=== PATIENT | male | born 1970 | race Caucasian/White ===

== ENCOUNTER → 2018-04-01 09:40 | Outpatient (CLI) | payer OTHER, SELFPAY ==
[2018-04-01 12:51] LABS: Anion Gap 8 (5-15); BUN 15 mg/dL (7-18); BUN/Creat Ratio 15.2 RATIO (10-20); Calcium,Total 9.1 mg/dL (8.5-10.1); Chloride 110 mmol/L (98-107); Creatinine, Serum 0.98 mg/dL (0.70-1.30); EST Glomerular Filtration Rate 86 mL/min (>60); Est Glom Filt Rate - Afr Amer 104 mL/min (>60); Glucose 99 mg/dL (74-106); Potassium 3.6 mmol/L (3.5-5.1); Sodium Level 146 mmol/L (136-145); Thyroid Stim Hormone (TSH) 1.08 uIU/mL (0.358-3.74)
== END ==
PROVIDERS: Family Provider Family Medicine; PCP Family Medicine; Visit Provider Psychiatry & Neurology Psychiatry
DX: F31.9 Bipolar disorder, unspecified (principal)
CPT/HCPCS: 36415; 80048; 80178; 84443

== ENCOUNTER → 2018-09-26 09:50 | Outpatient (CLI) | payer OTHER, SELFPAY ==
[2018-09-26 12:27] LABS: Anion Gap 7 (5-15); BUN 17 mg/dL (7-18); BUN/Creat Ratio 18.1 RATIO (10-20); Calcium,Total 8.9 mg/dL (8.5-10.1); Chloride 112 mmol/L (98-107); Creatinine, Serum 0.94 mg/dL (0.70-1.30); EST Glomerular Filtration Rate 91 mL/min (>60); Est Glom Filt Rate - Afr Amer 110 mL/min (>60); Glucose 97 mg/dL (74-106); Potassium 3.6 mmol/L (3.5-5.1); Sodium Level 145 mmol/L (136-145)
== END ==
PROVIDERS: Family Provider Family Medicine; PCP Family Medicine; Referring Provider Psychiatry & Neurology Psychiatry; Visit Provider Psychiatry & Neurology Psychiatry
DX: F31.9 Bipolar disorder, unspecified (principal)
CPT/HCPCS: 36415; 80048; 80178; 84443

== ENCOUNTER → 2019-03-28 11:25 | Outpatient (CLI) | payer OTHER, SELFPAY ==
[2019-03-28 12:42] LABS: Anion Gap 10 (5-15); BUN 15 mg/dL (7-18); BUN/Creat Ratio 13.2 RATIO (10-20); Calcium,Total 9.3 mg/dL (8.5-10.1); Chloride 109 mmol/L (98-107); Creatinine, Serum 1.14 mg/dL (0.70-1.30); EST Glomerular Filtration Rate 73 mL/min (>60); Est Glom Filt Rate - Afr Amer 88 mL/min (>60); Glucose 79 mg/dL (74-106); Potassium 3.6 mmol/L (3.5-5.1); Sodium Level 144 mmol/L (136-145); Thyroid Stim Hormone (TSH) 1.84 uIU/mL (0.358-3.74)
== END ==
PROVIDERS: Family Provider Family Medicine; PCP Family Medicine; Referring Provider Psychiatry & Neurology Psychiatry; Visit Provider Psychiatry & Neurology Psychiatry
DX: Z51.81 Encounter for therapeutic drug level monitoring (principal); Z79.899 Other long term (current) drug therapy
CPT/HCPCS: 36415; 80048; 80178; 84443

== ENCOUNTER → 2019-09-11 11:19 | Outpatient (CLI) | payer OTHER, SELFPAY ==
[2019-09-11 13:21] LABS: Anion Gap 2 (5-15); BUN 12 mg/dL (7-18); BUN/Creat Ratio 10.7 RATIO (10-20); Calcium,Total 9.3 mg/dL (8.5-10.1); Chloride 108 mmol/L (98-107); Creatinine, Serum 1.12 mg/dL (0.70-1.30); EST Glomerular Filtration Rate 74 mL/min (>60); Est Glom Filt Rate - Afr Amer 89 mL/min (>60); Glucose 82 mg/dL (74-106); Potassium 3.6 mmol/L (3.5-5.1); Sodium Level 139 mmol/L (136-145); Thyroid Stim Hormone (TSH) 1.64 uIU/mL (0.358-3.74)
== END ==
PROVIDERS: Family Provider Family Medicine; PCP Family Medicine; Referring Provider Psychiatry & Neurology Psychiatry; Visit Provider Psychiatry & Neurology Psychiatry
DX: Z79.899 Other long term (current) drug therapy (principal)
CPT/HCPCS: 36415; 80048; 80178; 84443

== ENCOUNTER → 2019-09-30 11:30 | Outpatient (CLI) | payer OTHER, SELFPAY ==
[2019-09-30 15:45] LABS: Cholesterol 187 mg/dL (200); High Density Lipoprotein 46 mg/dL; PSA,Total - Annual Screen 0.67 ng/mL (0.00-4.00); Triglycerides 307 mg/dL; Very Low Density Lipoprotein 61 mg/dL (5-40)
== END ==
LOC: BFHLAB 11:31
PROVIDERS: PCP Family Medicine; Visit Provider Family Medicine
DX: Z13.220 Encounter for screening for lipoid disorders (principal); Z12.5 Encounter for screening for malignant neoplasm of prostate
CPT/HCPCS: 36415; 80061; 84153; G0103

== ENCOUNTER → 2020-03-24 10:53 | Outpatient (CLI) | payer OTHER, SELFPAY ==
[2020-03-24 13:01] LABS: Anion Gap 2 (5-15); BUN 14 mg/dL (7-18); BUN/Creat Ratio 12.3 RATIO (10-20); Calcium,Total 9.3 mg/dL (8.5-10.1); Chloride 111 mmol/L (98-107); Creatinine, Serum 1.14 mg/dL (0.70-1.30); EST Glomerular Filtration Rate 72 mL/min (>60); Est Glom Filt Rate - Afr Amer 87 mL/min (>60); Glucose 90 mg/dL (74-106); Potassium 3.7 mmol/L (3.5-5.1); Sodium Level 141 mmol/L (136-145); Thyroid Stim Hormone (TSH) 1.03 uIU/mL (0.358-3.74)
== END ==
PROVIDERS: PCP Family Medicine; Referring Provider Psychiatry & Neurology Psychiatry; Visit Provider Psychiatry & Neurology Psychiatry
DX: Z79.899 Other long term (current) drug therapy (principal)
CPT/HCPCS: 36415; 80048; 80178; 84443

== ENCOUNTER 2020-04-22 06:51 | Day surgery (SDC) | payer OTHER, SELFPAY ==
[2020-04-22] VITALS (7 sets, daily range): BP systolic 128–165; BP diastolic 87–102; PULSE 45–64; RESP 15–16; TEMP 36.2–37.1; O2SAT 93–100; BMI 24.8
--- NOTE | 2020-04-22 07:20 | HP.PCM_ITS ---
History of Present Illness Date of Admission: 04/22/20 The patient is a 50 year old M who presents for screening colonoscopy. Patient has never had colonoscopy in the past. He has no blood in stool or abdominal pain. He denies a family history of colon cancer. He is not on any blood thinners. Past Medical/Surgical History - Planned Operation Planned Operative Procedure/s: cscope open access Date of Operative Procedure: 04/22/20 Permit Signed: No S.O.S: No Is This Patient Having a Total Joint: No - Previous Hospitalizations/Surgeries HX Hospitalizations: No HX of Surgeries: 2018 radiofreq ablation foot Any Problems With Anesthesia: No You/Your Family Experience Fever (Hyperthermia) With Anes: No Cholinesterase deficiency: No - Cardiovascular Hx Chest Pain within Last 2 months: No Hx of Irregular Heartbeat and/or Afib: No Hx Heart Attack: No Hx Congestive Heart Failure: No Hx Rheumatic Fever: No Hx Hypertension: No Hx Internal Defibrillator: No Hx Pacemaker: No Hx Cardiac Catheterization: No Hx Cardiac Surgery/Stents/Etc.: No Hx Stress Test: No HX Edema: No Hx Pain in Legs when Walking/Leg Cramps: No - Respiratory Chronic Cough: No HX of Shortness of Breath: No Hoarseness: No Hx Chronic Obstructive Pulmonary Disease (COPD): No Hx Asthma: No Hx Emphysema: No Hx Sleep Apnea: No Hx Oxygen Use at Home: No Hx Respiratory Tract Infection/Cold (presently): No Do You Snore Loudly (louder than talking or can be heard): No Do You Often Feel Tired/ Fatigued/ Sleepy Dring Daytime?: No Has Anyone Observed You Stop Breathing During Sleep?: No Result (for STOP score): Negative Hx Smoking: No Smoking Status: Never smoker - Gastrointestinal Hx Gastroesophageal Reflux: No Hx Gastrointestinal Disorders: No Hx Gastrointestinal Bleed: No Hx Ulcer: No Hx Hiatal Hernia: No Difficulty Chewing/Swallowing: No Recent Onset of Swallowing Problems: No Special diet followed at home: No Hx Unplanned Weight Loss of 20#: No HX Unplanned Weight Gain of 20#: No - Neurological Hx Seizures: Yes - as child/epilepsy/resolved HX Syncope/Blackout Spells/Unconsciousness: No Hx CVA/Stroke: No Hx Transient Ischemic Attacks (TIA): No Hx Multiple Sclerosis: No Hx Parkinson's Disease: No Hx Head/Neck Injury: No Hx Headaches: No Hx Back Injury/Pain: No Recent Onset of Speech Difficulty: No Restless Legs: No Does patient have nerve stimulator: No Patient instructed to have device shut off: No Rep notified?: No - Blood Disorder Hx Leukemia: No Bleeding Tendencies: No Hx Deep Vein Thrombosis: No Hx High Cholesterol: No Blood Transmitted Disease: No Hx Hepatitis: No Hx Cirrhosis: No Hx Anemia: No Hx Blood Disorders: No - Genitourinary Hx Renal Disease: No - Musculoskeletal Hx Arthritis: Yes Hx Rheumatoid Arthritis: No Hx Gout: No Recent Onset of an Orthopedic Problem: No - Endocrine Hx Diabetes: No Thyroid Disease: No Hx Steroid Therapy: No - Psycho/Social Hx Substance Use: No Hx Alcohol Use: Yes - social Hx Anxiety: No Hx Depression: Yes Mental Illness: Yes - bipolar on med - Miscellaneous Hx Cancer: No Recent Exposure to Contagious Disease: No Active MRSA: No Hx of C-Diff: No Any Loose Teeth: No Allergies No Known Allergies Allergy (Verified 04/22/20 07:09) - Discharge Is Pt Admitted From a Longterm, or a Long Term: No After D/C, Where Do you Plan to Go: Return Home - Physical Exam General: Alert, Oriented x3 Lungs: Normal air movement Cardiovascular: Regular rate, Regular Rhythm Abdomen: Bowel Sounds Present, Soft, Non Tender, Non-Distended Assessment/Plan 50-year-old male for screening colonoscopy I explained endoscopy in detail to the patient. I explained the risks including but not limited to stroke or heart attack with anesthesia, perforation of the GI tract, bleeding, infection. I explained that any of these could necessitate further emergency surgery. The patient understands and all questions were answered sufficiently. The patient wishes to proceed with procedure. We discussed the current risks associated with COVID-19. While it is understood that there is a community spread of COVID-19, the risk of velia COVID-19 while at [facility] ([facility]) is very low; however, the risk cannot be completely mitigated because of the community spread of the disease. We discussed in detail the risk of exposure to and/or potential harm posed by the COVID-19 virus with having a surgery/procedure at this time versus the risk of delaying the surgery/procedure. It is not possible to know either the risk of delaying the surgery or procedure or chance of getting an infection with perfect accuracy, but a joint decision was made to proceed at this time with the scheduled surgery/procedure as indicated on the consent form. Patient was notified that we will need to comply with any screening or testing [facility] wishes to perform or that surgery may be delayed for any positive results. Abdirizak Montez MD Pager: [facility] [address] [place] [address] [address] [place] [address] Office: Surgery Risks - Colonoscopy Risks Include but are not Limited To: Risks include but are not limited to: Bleeding, perforation requiring further surgery, inability to complete colonoscopy requiring barium enema.
[2020-04-22] MEDS: Lactated Ringers 1,000 ML 100 ML IV (07:30)
--- NOTE | 2020-04-22 08:00 | COLBX_PTH ---
PATIENT: ANIYA DU LOC: EN U#:[id number] AGE/SX: 50/M ROOM: RE04/22/[address]: Dr. Abdirizak Montez MD : 1970 BED: DIS: 04/22/2020 SPEC #: [id number] RECD: 04/22/20 10:17 STATUS: JOSE CARLOS ZAHRA #: [id number] CECILIO: 04/22/20 08:[address]: Abdirizak Montez DEPT: SURGICAL PATHOLOGY RECD BY: Alexander Sadler ENTERED: 04/22/20 11:38 SP TYPE: COLON BX OTHR DR: Dr. Salomón Jean MD Tissues: SPLENIC FLEXURE Procedures: Surgery Specimen Level IV HEADER OPERATION: Colonoscopy - open access (MAC) PRE-OP DIAGNOSIS: Screening TISSUE SUBMITTED: Splenic flexure polyp MICROSCOPIC DIAGNOSIS Splenic flexure polyp, biopsy: Consistent with inflammatory polyp. SJ:blossom 04/25/20 MICROSCOPIC DESCRIPTION Slides are reviewed. GROSS DESCRIPTION Received in fixative is one container labeled with the patient's name and designated splenic flexure polyp. The specimen consists of a piece of mendoza-pink polyp measuring 0.4 x 0.4 x 0.3 cm. The specimen is totally submitted in one cassette. / SJ:blossom 04/22/20 TC:5 CPT: 32287
--- NOTE | 2020-04-22 08:13 | OP.CCLET_ITS ---
04/22/2020 Salomón Jean Re : Colonoscopy procedure for Vishnu Zamora Dear Miranda This procedure was performed on Wednesday, April 22, 2020. My impressions and recommendations are as follows: Impressions : - One polyp at the splenic flexure, removed with a hot snare. Resected and retrieved. Clip was placed. - The examination was otherwise normal on direct and retroflexion views. Recommendations : - Discharge patient to home. - Resume previous diet. - Continue present medications. - Await pathology results. - Repeat colonoscopy in 5 years for surveillance based on pathology results. My findings are described in the full procedure note, which is enclosed. If I can be of further assistance, please feel free to contact me at Doctor phone number(s): , Work: . Sincerely, Abdirizak Montez MD 04/22/2020 8:13:01 AM This report has been signed electronically.
--- NOTE | 2020-04-22 08:13 | OP.COLON_ITS ---
Patient Name: Vishnu Zamora Procedure Date: 04/22/2020 7:37 AM Date of : 1970 Age: 50 Procedure: Colonoscopy Indications: Screening for colorectal malignant neoplasm Providers: Abdirizak Montez MD Referring MD: Salomón Jean Medicines: Monitored Anesthesia Care Patient Profile: This is a 50 year old male. Refer to note in patient chart for documentation of history and physical. Last Colonoscopy: none. The patient's first colonoscopy is today. Complications: No immediate complications. Estimated blood loss: Minimal. Procedure: Pre-Anesthesia Assessment: - Prior to the procedure, a History and Physical was performed, and patient medications and allergies were reviewed. The patient's tolerance of previous anesthesia was also reviewed. The risks and benefits of the procedure and the sedation options and risks were discussed with the patient. All questions were answered, and informed consent was obtained. Prior Anticoagulants: The patient has taken no previous anticoagulant or antiplatelet agents. After reviewing the risks and benefits, the patient was deemed in satisfactory condition to undergo the procedure. After I obtained informed consent, the scope was passed under direct vision. Throughout the procedure, the patient's blood pressure, pulse, and oxygen saturations were monitored continuously. The colonoscope was introduced through the anus and advanced to the cecum, identified by appendiceal orifice and ileocecal valve. The colonoscopy was performed without difficulty. The patient tolerated the procedure well. The quality of the bowel preparation was good. Scope In: 7:51:40 AM Scope Withdrawal Time 0 hours 7 minutes 36 seconds Scope Out: 8:04:37 AM Total Procedure Duration Time 0 hours 12 minutes 57 seconds Findings: A polyp was found in the splenic flexure. The polyp was semi-pedunculated. The polyp was removed with a hot snare. Resection and retrieval were complete. To prevent bleeding after the polypectomy, one hemostatic clip was successfully placed. There was no bleeding at the end of the procedure. The exam was otherwise without abnormality on direct and retroflexion views. Impression: - One polyp at the splenic flexure, removed with a hot snare. Resected and retrieved. Clip was placed. - The examination was otherwise normal on direct and retroflexion views. Recommendation: - Discharge patient to home. - Resume previous diet. - Continue present medications. - Await pathology results. - Repeat colonoscopy in 5 years for surveillance based on pathology results. Procedure Code(s): --- Professional --- 86031, Colonoscopy, flexible; with removal of tumor(s), polyp(s), or other lesion(s) by snare technique Diagnosis Code(s): --- Professional --- Z12.11, Encounter for screening for malignant neoplasm of colon D12.3, Benign neoplasm of transverse colon (hepatic flexure or splenic flexure) CPT copyright 2017 [employer]. All rights reserved. The codes documented in this report are preliminary and upon cloth doubling machine operator review may be revised to meet current compliance requirements. Abdirizak Montez MD 04/22/2020 8:13:01 AM This report has been signed electronically. Number of Addenda: 0 Note Initiated On: 04/22/2020 7:37 AM
== END 2020-04-22 09:00 | disposition home or self-care (01) ==
LOC: EN 06:53 → AC 06:57
PROVIDERS: Anesthesiology; PCP Family Medicine; Referring Provider Family Medicine; Visit Provider Surgery
PROC: 0DJD8ZZ Inspection of Lower Intestinal Tract, Via Natural or Artificial Opening Endoscopic (ICD-10-PCS; CPT 45378; principal; 2020-04-22 07:55)
DX: Z12.11 Encounter for screening for malignant neoplasm of colon (principal); D12.3 Benign neoplasm of transverse colon; Z20.828 Contact with and (suspected) exposure to other viral communicable diseases; F31.9 Bipolar disorder, unspecified
CPT/HCPCS: 45385; 87635; 88305; 94799; J7120; J2405; U0003

== ENCOUNTER → 2020-08-05 18:10 | Outpatient (CLI) | payer OTHER, SELFPAY ==
[2020-04-22 07:17] VITALS: BMI 24.8
== END ==
PROVIDERS: PCP Family Medicine; Referring Provider Family Medicine; Visit Provider Family Medicine
DX: U07.1 COVID-19 (principal)
CPT/HCPCS: 87635; C9803; U0003

== ENCOUNTER → 2020-10-08 09:37 | Outpatient (CLI) | payer OTHER, SELFPAY ==
[2020-04-22 07:17] VITALS: BMI 24.8
[2020-10-08 11:27] LABS: Anion Gap 3 (5-15); BUN 39 mg/dL (7-18); BUN/Creat Ratio 34.2 RATIO (10-20); Calcium,Total 9.9 mg/dL (8.5-10.1); Chloride 110 mmol/L (98-107); Creatinine, Serum 1.14 mg/dL (0.70-1.30); EST Glomerular Filtration Rate 72 mL/min (>60); Est Glom Filt Rate - Afr Amer 87 mL/min (>60); Glucose 72 mg/dL (74-106); Potassium 4.1 mmol/L (3.5-5.1); Sodium Level 143 mmol/L (136-145); Thyroid Stim Hormone (TSH) 1.37 uIU/mL (0.358-3.74)
== END ==
PROVIDERS: PCP Family Medicine; Referring Provider Psychiatry & Neurology Psychiatry; Visit Provider Psychiatry & Neurology Psychiatry
DX: Z51.81 Encounter for therapeutic drug level monitoring (principal); Z79.899 Other long term (current) drug therapy
CPT/HCPCS: 36415; 80048; 80178; 84443

== ENCOUNTER → 2021-03-08 09:47 | Outpatient (CLI) | payer OTHER, SELFPAY ==
[2021-02-28 10:04] VITALS: BMI 27.0
[2021-03-08 13:00] LABS: ALB/GLOB Ratio 1.1 RATIO (0.9-2.4); AST(SGOT) 14 U/L (15-37); Alanine Aminotransfer ALT/SGPT 19 U/L (16-61); Albumin, Serum 3.8 g/dL (3.2-5.0); Alkaline Phosphatase 70 U/L (45-117); Anion Gap 4 (5-15); BUN 20 mg/dL (7-18); BUN/Creat Ratio 15.5 RATIO (10-20); Calcium,Total 9.6 mg/dL (8.5-10.1); Chloride 112 mmol/L (98-107); Creatinine, Serum 1.29 mg/dL (0.70-1.30); EST Glomerular Filtration Rate 62 mL/min (>60); Est Glom Filt Rate - Afr Amer 76 mL/min (>60); Globulin 3.4 g/dL (2.2-4.2); Glucose 93 mg/dL (74-106); PSA,Total - Annual Screen 0.53 ng/mL (0.00-4.00); Potassium 3.7 mmol/L (3.5-5.1); Protein, Total 7.2 g/dL (6.4-8.2); Sodium Level 142 mmol/L (136-145); Thyroid Stim Hormone (TSH) 0.98 uIU/mL (0.358-3.74)
== END ==
PROVIDERS: Psychiatry & Neurology Neurology; PCP Family Medicine; Referring Provider Family Medicine; Visit Provider Family Medicine
DX: Z79.899 Other long term (current) drug therapy (principal); Z80.42 Family history of malignant neoplasm of prostate
CPT/HCPCS: 36415; 80053; 80178; 82140; 84153; 84443; G0103

== ENCOUNTER → 2021-05-17 09:54 | Outpatient (CLI) | payer OTHER, SELFPAY ==
--- NOTE | 2021-05-17 09:55 | MRI_ITS ---
STUDY: MRI LUMBAR SPINE WITHOUT CONTRAST REASON FOR EXAM: Male, 51 years old. low back pain, disc degeneration TECHNIQUE: Standardized fat and water weighted pulse sequences were obtained in the sagittal and axial planes. COMPARISON: None FINDINGS: Normal lumbar lordosis. There is no substantial scoliosis. Normal conus medullaris that terminates at the L1 L1-2: There is minimal disc space narrowing and endplate spondylosis. There is no significant disc herniation, central canal or foraminal stenosis. L2-3: There is minimal disc space narrowing and endplate spondylosis. There is no significant disc herniation, central canal or foraminal stenosis. L3-4: There is minimal disc space narrowing and endplates spondylosis. Minimal disc bulge and facet arthropathy without significant central canal stenosis. Mild right and mild left foraminal stenosis. L4-5: There is minimal disc space narrowing and endplates spondylosis. Minimal disc bulge and mild arthropathy with mild central canal stenosis. Mild right and mild left foraminal stenosis. L5-S1: There is mild disc space narrowing and endplates spondylosis. Moderate disc bulge with small central protrusion and facet arthropathy with mild central canal stenosis. Moderate right and moderate left lateral recess narrowing. Moderate right and moderate left foraminal stenosis. Normal visualized sacral ala. MRI/Spine Lumbar (Routine) IMPRESSION: L5/S1: Moderate lateral recess and foraminal stenosis. Electronically Signed: Dakotah Dodge MD at 8:51 EDT Tel , Service support ,
== END ==
PROVIDERS: PCP Family Medicine; Referring Provider Orthopaedic Surgery; Visit Provider Orthopaedic Surgery
DX: M51.37 Other intervertebral disc degeneration, lumbosacral region (principal); M48.061 Spinal stenosis, lumbar region without neurogenic claudication
CPT/HCPCS: 72148

== ENCOUNTER → 2021-08-24 | Outpatient (CLI) | payer OTHER, SELFPAY ==
--- NOTE | 2021-08-24 10:28 | EKG12_ITS ---
Test Reason : PRE-OP Blood Pressure : / mmHG Vent. Rate : 057 BPM Atrial Rate : 057 BPM P-R Int : 170 ms QRS Dur : 116 ms QT Int : 430 ms P-R-T Axes : 027 000 027 degrees QTc Int : 418 ms Sinus bradycardia Left ventricular hypertrophy with QRS widening Abnormal ECG Confirmed by SHEFALI PARK, FREDDY ([id number]), editorial project manager AMOS MADERA ([id number]) on 08/28/2021 10:19:43 AM Referred By: TREVIN Confirmed By:FREDDY MEEHAN MD
[2021-08-24 11:49] LABS: Absolute Lymphocyte Count 0.87 X10^3/uL (0.83-4.51); Absolute Neutrophil Count 4.6 X10^3/uL (2.0-7.7); Basophil# 0.05 X10^3/uL; Basophil% 0.8 % (0-1); Eosinophil# 0.22 X10^3/uL; Eosinophils% 3.5 % (0-5); Hematocrit 43.7 % (40-54); Hemoglobin 14.2 g/dL (13.0-16.5); Lymphocyte # 0.87 X10^3/ul (0.83-4.51); Mean Corp Hgb Conc 32.5 g/dL (32-36); Mean Corpuscular Volume 92.2 fL (80-94); Mean Platelet Vol. 10.8 fl (6.2-12.0); Monocyte# 0.48 X10^3/uL; Monocyte% 7.7 % (0-10); NRBC Flagged by Analyzer 0 % (0-5); Neutrophil # 4.55 X10^3/uL (2.7-7.7); Platelet Count 202 K/mm3 (150-450); RBC Distribution Width SD 40.2 fl (35.1-43.9); Red Blood Count 4.74 M/mm3 (4.6-6.2); White Blood Count 6.2 K/mm3 (4.4-11.0)
[2021-08-24 12:09] LABS: Magnesium 2.5 mg/dL (1.6-2.6)
[2021-08-24 12:12] LABS: Anion Gap 4 (5-15); BUN 20 mg/dL (7-18); BUN/Creat Ratio 15.6 RATIO (10-20); Calcium,Total 9.7 mg/dL (8.5-10.1); Chloride 110 mmol/L (98-107); Creatinine, Serum 1.28 mg/dL (0.70-1.30); EST Glomerular Filtration Rate 63 mL/min (>60); Est Glom Filt Rate - Afr Amer 76 mL/min (>60); Glucose 87 mg/dL (74-106); Sodium Level 143 mmol/L (136-145)
[2021-08-24 12:50] LABS: HIV - WCH Non-Reactive (Nonreactive); Hepatitis B Surface Antibody Non-Reactive; Hepatitis C Antibody Non-Reactive (Nonreactive)
[2021-08-25 09:05] LABS: Hepatitis A AB, Total Negative (Negative)
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
== END | disposition home or self-care (01) ==
PROVIDERS: Anesthesiology; PCP Family Medicine; Visit Provider Orthopaedic Surgery
DX: Z01.818 Encounter for other preprocedural examination (principal)
CPT/HCPCS: 36415; 80048; 83735; 85025; 86703; 86706; 86708; 86803; 87081; 93005

== ENCOUNTER 2021-10-18 10:33 | Outpatient (CLI) | payer OTHER, SELFPAY ==
[2021-10-18 13:09] LABS: Anion Gap 5 (5-15); BUN 27 mg/dL (7-18); BUN/Creat Ratio 20.9 RATIO (10-20); Calcium,Total 9.5 mg/dL (8.5-10.1); Chloride 112 mmol/L (98-107); Creatinine, Serum 1.29 mg/dL (0.70-1.30); EST Glomerular Filtration Rate 62 mL/min (>60); Est Glom Filt Rate - Afr Amer 75 mL/min (>60); Glucose 104 mg/dL (74-106); Potassium 3.8 mmol/L (3.5-5.1); Sodium Level 143 mmol/L (136-145); Thyroid Stim Hormone (TSH) 1.24 uIU/mL (0.358-3.74)
== END 2021-10-18 23:59 | disposition home or self-care (01) ==
LOC: MTLAB 10:34
PROVIDERS: PCP Family Medicine; Referring Provider Psychiatry & Neurology Psychiatry; Visit Provider Psychiatry & Neurology Psychiatry
DX: Z79.899 Other long term (current) drug therapy (principal)
CPT/HCPCS: 36415; 80048; 80178; 84443

== ENCOUNTER 2021-12-19 05:22 | Inpatient (IN) | payer OTHER, SELFPAY ==
[2021-12-16 10:07] LABS: Absolute Lymphocyte Count 0.93 X10^3/uL (0.83-4.51); Absolute Neutrophil Count 4.9 X10^3/uL (2.0-7.7); Basophil# 0.05 X10^3/uL; Basophil% 0.8 % (0-1); Eosinophil# 0.21 X10^3/uL; Eosinophils% 3.2 % (0-5); Hematocrit 39.9 % (40-54); Hemoglobin 13.6 g/dL (13.0-16.5); Lymphocyte # 0.93 X10^3/ul (0.83-4.51); Mean Corp Hgb Conc 34.1 g/dL (32-36); Mean Corpuscular Hgb 30.6 pg (27.0-32.0); Mean Corpuscular Volume 89.9 fL (80-94); Mean Platelet Vol. 10.2 fl (6.2-12.0); Monocyte% 7.5 % (0-10); NRBC Flagged by Analyzer 0 % (0-5); Neutrophil % 73.6 % (47-70); Platelet Count 198 K/mm3 (150-450); RBC Distribution Width CV 12.4 % (11.6-14.6); RBC Distribution Width SD 40.6 fl (35.1-43.9); Red Blood Count 4.44 M/mm3 (4.6-6.2); White Blood Count 6.7 K/mm3 (4.4-11.0)
[2021-12-16 10:25] LABS: Magnesium 2.1 mg/dL (1.6-2.6)
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
[2021-12-19] VITALS (13 sets, daily range): BP systolic 147–174; BP diastolic 78–108; PULSE 56–102; RESP 14–16; TEMP 36–37.1; O2SAT 97–100; BMI 27.4
[2021-12-19 06:41] LABS: Bedside Glucose 102 mg/dL (74-106)
[2021-12-19] MEDS: Acetaminophen 500 MG Tablet 1000 MG PO ×2 (06:42→17:12)
[2021-12-19] MEDS: Lactated Ringers 1,000 ML 15 ML IV (06:44)
[2021-12-19] MEDS: THROMBIN (RECOMBINANT) 20,000 UNIT VIAL 20000 UNIT TOPICAL (07:13)
--- NOTE | 2021-12-19 07:30 | DISC_PTH ---
PATIENT: ANIYA DU LOC: MS3 U#:[id number] AGE/SX: 51/M ROOM: NC311 RE12/19/[address]: Dr. Halina Kilpatrick MD : 1970 BED: 1 DIS: 12/22/2021 SPEC #: [id number] RECD: 12/19/21 14:16 STATUS: JOSE CARLOS SWEENEY #: [id number] CECILIO: 12/19/21 07:[address]: Luca Mike DEPT: SURGICAL PATHOLOGY RECD BY: Rudy Fried ENTERED: 12/20/21 09:56 SP TYPE: DISC OTHR DR: DO Dr. Halina Marie MD Dr. Scott Hannan, MD Tissues: Intervertebral disc, NOS Procedures: Surgery Specimen Level III HEADER OPERATION: ERAS, 360 lumbar fusion L5-S1 PRE-OP DIAGNOSIS: Degenerative disc disease, lumbosacral TISSUE SUBMITTED: Disc L5-S1 MICROSCOPIC DIAGNOSIS Intervertebral disc, L5-S1, discectomy: Fragments of intervertebral disc with degenerative change. AM:blossom 12/21/2021 MICROSCOPIC DESCRIPTION Slides are reviewed. GROSS DESCRIPTION Received in fixative is one container labeled with the patient's name and designated disc L5-S1. The specimen consists of multiple pieces of mendoza, indurated tissue that in aggregate measure 7 x 8 x 2.5 cm. Blender Helper sections are submitted in two cassettes. / SJ:blossom 12/20/2021 TC:5 CPT: 55620
[2021-12-19] MEDS: Cefazolin 2 GM in 0.9% Normal Saline 100 ML IV (07:41)
[2021-12-19] MEDS: Heparin 10,000 UNITS/10 ML Vial 10000 UNITS (08:38)
--- NOTE | 2021-12-19 09:22 | RAD_ITS ---
EXAM: XR SPINE, 1 VIEW CLINICAL INDICATION: 360 FUSION L5-S1 TECHNIQUE: Single view of the spine. This report was created using [employer] report generation technology. COMPARISON: None. FINDINGS: VERTEBRAE: Unremarkable. Preserved vertebral body height. No fracture. Preservation of the normal spine curvature. No significant facet arthropathy. DISC SPACES: Unremarkable. Disc spaces are maintained. SOFT TISSUES: Unremarkable. TUBES, LINES AND DEVICES: Crosstable lateral intraoperative radiograph showing needle localizer device pointing at the anterior aspect of the S1 superior endplate. RAD/Spine 1 View Any Level IMPRESSION: Needle localizer device tip is penetrating/pointing at the anterior aspect of the S1 superior endplate Electronically Signed: Chinmay Sultana MD at 9:53 EDT ,
--- NOTE | 2021-12-19 10:15 | RAD_ITS ---
EXAM: XR SPINE, 1 VIEW CLINICAL INDICATION: 360 FUSION L5-S1 -- IMAGE 2 TECHNIQUE: Single view of the spine. This report was created using [employer] report generation technology. COMPARISON: 12/19/2021 at 9:14 AM. FINDINGS: VERTEBRAE: See below. DISC SPACES: Crosstable intraoperative lateral radiograph of the lumbar spine centered at the L5-S1 disc space level. Metallic implant in the central aspect of the L5-S1 disc space mildly elevating L5-S1 disc space height anchored by metallic plate with transfixing screws penetrating the lower L4 vertebral body and the upper S1 body. SOFT TISSUES: Unremarkable. RAD/Spine 1 View Any Level IMPRESSION: Normal intraoperative lateral radiograph of the lumbar spine showing successful L5-S1 anterior interbody fusion using metallic implant inside L5-S1 disc space anchored by metallic plate with transfixing screws penetrating the lower L5 vertebral body in the upper S1 body. Electronically Signed: Chinmay Sultana MD at 11:04 EDT ,
--- NOTE | 2021-12-19 10:27 | RAD_ITS ---
STUDY: X-RAY - LUMBAR SPINE REASON FOR EXAM: Male, 51 years old. FUSION 360 -- IMAGE 3 TECHNIQUE: 1 view(s) of the lumbar spine were obtained. COMPARISON: None FINDINGS: Fluoroscopy of the lumbar spine was utilized operating room during fixation of a single image is submitted for interpretation.. RAD/Spine 1 View Any Level IMPRESSION: Fluoroscopy during spinal fixation. Electronically Signed: Selwyn Lane MD at 12:34 EDT ,
--- NOTE | 2021-12-19 10:28 | PCM.OPRPT ---
Report of Operation Date of Procedure: 12/19/21 Description of Surgical Findings:: Preoperative diagnosis: Disc disruption syndrome L5-S1 Postoperative diagnosis: The same Procedures: #1 anterior lumbar interbody fusion L5-S1 CPT code 06826 #2 application of anterior titanium plate L5-S1 CPT code 01888/59 #3 insertion of titanium cage L5-S1 CPT code 97412 Co-surgeons: Dr. Mike and Dr. Doherty [employer] Farm Manager: Dr. Alcala and Radha Corea NP Anesthesia: General endotracheal anesthesia administered by [facility] Estimated blood loss: 30 cc Drains: None Complications: None Procedure: Patient was taken to the OR where he was placed in the supine position on the operating table. He was then placed under general endotracheal anesthesia. A Rankin catheter was inserted. Neuro monitoring placed their leads on the patient. The abdomen was prepped and draped in the standard fashion. The actual surgical approach to the L5-S1 level is described in Dr. Doherty's operative summary. Once Dr. Doherty had the L5-S1 space exposed an intraoperative x-ray was taken with a needle marker in place that confirmed that we were indeed at L5-S1. I then used a long handled a 10 blade and cut the anterior annulus above and below the endplates and removed the annulus with pituitary rongeurs more nucleus was removed from the the space with pituitary rongeurs. I then also used both ring and bowl curettes to remove all the cartilage off both endplates. We thoroughly irrigated frequently in the course of the case to prevent infection. We then use the trials to determine which cage to use. We settled on a 15 degree 27 x 40 mm 16 mm high cage. I then used the appropriate broach to broach the endplates and I also used a bur to bur the sides a little flatter to make a perfect fit for the cage. The broach was used repeatedly to roughen up the endplates and cause them to bleed. Again thorough irrigation was carried out. Note that previously we had obtained a 60 cc of the patient's BMA from the right iliac crest using a Jamshidi needle. This had been handed off to the ct scan technician who then the stem cells from the rest of the cells and concentrated them about 10 times and handed them back to the OR table. We then used demineralized bone matrix that was processed to be a sponge and we filled both halves of the cage with a sponge these were then soaked in the patient's own stem cells. I then tamped the cage into the place and countersunk it a couple or 3 mm. Then used a 27mm plate plate was centered and we use the awl to punch a 4 holes 2 into L5 and 2 into S1 appropriate angles followed by insertion of 30 mm 5 mm screws. The locking mechanisms were then activated on the plate. It was seen in the lateral projection on plain x-ray was found to be satisfactory with excellent position of the cage the plate and the screws. We then placed an amnionic membrane directly on the plate then let the retracted vessels fall over the plate with its amniotic membrane to prevent adhesions to those vessels. The closure is then described in Dr. Doherty's operative summary. Is the end of operative summary on Vishnu Zamora. This is Dr. Mike dictating.
--- NOTE | 2021-12-19 10:34 | OP.PCM_ITS ---
Problems Associated Problem List Diagnoses (1) DDD (degenerative disc disease), lumbosacral: Report of Operation Date of Procedure: 12/19/21 Pre-Operative Diagnosis: Degenerative disc disease Post-Operative Diagnosis: The same Surgery/Procedure Performed:: 1. Anterior exposure and anterior lumbar interbody fusion L5-S1 with 16mm cage and an anterior plate with 2 30 mm screws into L5 and 2 30 mm screws into S1 Type of Anesthesia: General Description of Procedure: Surgeon: Dr. Mike co-surgeon: Dr. Benji Doherty Gang Punch Operator: Dr. Spencer Butts Operation: Patient brought to operating room. Underwent appropriate timeout consent. Underwent general anesthesia. All appropriate monitoring lines were placed. Was prepped and draped in a sterile fashion. We did a left lower quadrant incision dissected down onto the anterior fascia. Also at this point made a small incision in the and over the right anterior superior iliac spine and bone marrow aspirate was removed. We then incised the anterior fascia and divided this medially to the midline and laterally out to the rectus. We freed up the anterior fascia superior and inferior. We then got lateral to the rectus into the retroperitoneal space. We then dissected down onto the iliopsoas and put in the Omni retractor. Using blunt dissection we dissected down onto the L5-S1 disc base. Several branches were divided between clips. Including the middle sacral vessels. We then had good exposure of the disc base. We confirmed this with x-ray we are at L5-S1. Patient then underwent the discectomy. Freed up all loose debris. We dilated up to a 16mm and used a broach as well. We then put in a 16mm cage that was filled in with the bone marrow aspirate. We then put an anterior plate and 2 screws that were 30 mm and L5 and 2 screws that were 30 mm and S1. Complete repletion put a film over this release all the retractors and there was good hemostasis. Completion x-ray showed great po sition of the plate and cage. We then closed with a running strata fix and then Vicryl in layers. Monocryl and Dermabond for the skin. I was present for the entire anterior component. Patient will then be flipped over and posterior all done separately.
--- NOTE | 2021-12-19 13:20 | OP.PCM_ITS ---
Report of Operation Date of Procedure: 12/19/21 Description of Surgical Findings:: Preoperative diagnosis: Disc disruption syndrome L5-S1 Postoperative diagnosis: The same Procedures: #1 posterior lumbar fusion L5-S1 CPT code 69013 #2 nonsegmental internal fixation L5-S1 CPT code 33692 Surgeon: Dr. Mike psychiatric nursing assistant: Radha Corea NP Anesthesia: General endotracheal anesthesia administered by [facility] Estimated blood loss: 70 cc (total 100 cc for both the front surgery and the back surgery) Drains: None Complications: None Procedure: After the anterior incision was closed the patient was then moved to another OR table and put in the prone position on the Wayne frame. Care was taken to protect his bony prominences his genitalia the ulnar nerves of both elbows the brachial plexus bilaterally his facial features and cervical spine. The back was then prepped and draped in standard fashion. I then made a longitudinal incision so centered over L5-S1. Subcutaneous tissues were incised length of skin incision. I first opened the lumbar fascia to the left of the spinous processes and elevated paravertebral muscles off the lamina of L5 and the lamina of S1. An intraoperative x-ray was taken with a marker in place to confirm that we were indeed at L5-S1. We then opened the opposite side elevating the paravertebral muscles off the lamina of 5 lamina of S1 on the right side. The super slide retractors were then put in place. I then used a 6 mm marcie bur to bur the lamina of 5 on both sides and the lamina of S1 on both sides. The SPARC product was then split into and half was put on each side. I removed the interspinous ligament between L5 and S1. Bony spacer was then put in place and tamped into place. We used a 10 mm spacer. Then applied the internal fixation device. After appropriate positioning all the locking mechanisms were then activated. We then began closure. Noted we thoroughly irrigated repeatedly several times during the course of the procedure. We closed the lumbar fascia using [id number] suture with #1 Vicryl followed by closure of subcutaneous tissues with 2-0 Vicryl in interrupted fashion and skin was approximated using skin clips. Note that he had very little bleeding and a drain was not felt to be necessary. Sterile dressings were then applied. The patient was then recovered in the OR and taken to recovery in satisfactory condition. This is the end of operative summary on Vishnu Zamora. This is Dr. Mike dictating.
--- NOTE | 2021-12-19 14:42 | SUR.PHASEI ---
FAMILY UPDATED VIA INFORMATION SYSTEMS SECURITY SPECIALIST
--- NOTE | 2021-12-19 15:02 | SUR.PHASEI ---
PATIENT MONITORED ON ETCO2 NASAL CANNULA DURING PACU STAY FOR ERAS PROTOCOL
--- NOTE | 2021-12-19 15:43 | PCM.PN.HOSP ---
Subjective Subjective Medical management status post L5-S1 fusion due to degenerative disc disease of the lumbar spine Objective Data Objective Data This 51-year-old white male was seen in the recovery room at [facility] in the surgery department for evaluation concerning medical management following an L5-S1 fusion due to degenerative joint disease of the lumbar spine. Patient has a history of bipolar disorder and tremor-patient states the tremor has been attributed to his use of lithium in the past. At the time my examination, patient has been given narcotics for pain control, he is able to answer simple questions appropriately however. Patient denies any shortness of breath, chest discomfort, or abdominal pain. Vital Signs: Vital Signs Temp Pulse Resp BP Pulse Ox 97 F L 77 16 149/106 H 100 12/19/21 13:52 12/19/21 15:15 12/19/21 15:15 12/19/21 15:15 12/19/21 15:15 Oxygen Flow Rate (L/min) 4 Oxygen Delivery Method Nasal Cannula Weight: 84.4 kg Body Mass Index (BMI) 27.4 Intake & Output: Intake and Output for Last 24 Hours 12/17/21 12/18/21 12/19/21 23:59 23:59 23:59 Intake Total 1212 / 1212 Output Total 1000 / 1000 Balance 212 / 212 Lab / Micro Data Result Diagrams: 12/16/21 09:33 Labs: Laboratory Results - last 24 hr 12/19/21 06:34: POC Glucose 102 Micro: Microbiology 12/16/21 09:34 Swab (Method) Nasal Screen MRSA/MSSA - Final Radiography Diagnostic Testing: Radiology Impression Spine X-Ray 12/19/21 09:22 IMPRESSION: Needle localizer device tip is penetrating/pointing at the anterior aspect of the S1 superior endplate Electronically Signed: Chinmay Sultana MD at 9:53 EDT , Spine X-Ray 12/19/21 10:15 IMPRESSION: Normal intraoperative lateral radiograph of the lumbar spine showing successful L5-S1 anterior interbody fusion using metallic implant inside L5-S1 disc space anchored by metallic plate with transfixing screws penetrating the lower L5 vertebral body in the upper S1 body. Electronically Signed: Chinmay Sultana MD at 11:04 EDT , Spine X-Ray 12/19/21 10:27 IMPRESSION: Fluoroscopy during spinal fixation. Electronically Signed: Selwyn Lane MD at 12:34 EDT , Physical Exam Const Constitutional Narrative: Patient is alert at this time, he is somnolent due to administration of pain medications, he does respond appropriately to questions when he is awakened. General Appearance: cooperative, well kempt and well developed Orientation / Consciousness: awake, oriented to person, oriented to place and oriented to time HEENT normocephalic, head/scalp atraumatic and moist oral mucous membranes Head and Scalp: normocephalic Eyes PERRL, EOMs intact bilaterally and conjunctivae normal Neck nuchal rigidity, supple, no JVD, thyroid normal and no carotid bruits General: trachea midline Resp normal respiratory effort, no retractions, no use of accessory muscles and clear to auscultation bilaterally Auscultation: Negative for rales, rhonchi or wheezes Cardio regular rate, regular rhythm, S1 normal heart sound, S2 normal heart sound, no murmurs, no rub and no gallops GI normal to inspection, nondistended, normoactive bowel sounds, soft to palpation and non-tender Extremity normal to inspection and no clubbing, cyanosis or edema Skin General Skin Exam: no breakdown Neuro oriented x3, CN's II-XII intact bilaterally, no focal motor deficits and no sensory deficits noted Speech: speech normal Psych Psych Narrative: Patient is somnolent, he awakens to verbal stimuli, he is appropriate when answering questions. Assessment & Plan Assessment/Plan (1) Essential tremor: PLAN: 1. Bipolar disorder-patient is currently on lithium 900 mg twice daily-this will be continued #2 tremor-etiology unclear, patient takes propranolol 20 mg twice daily-this will be continued #3 degenerative disc disease lumbar spine-postop day #0 L5-S1 fusion with insertion of titanium cage L5-S1 and application of anterior titanium plate [id number] will be seen by PT and OT, orthopedic surgery has admitted the patient Patient appears medically stable at this time. Charges/Coding Visit Charges Inpatient E&M: 13423 Subs Hosp L2
[2021-12-19] MEDS: Lactated Ringers 1,000 ML 100 ML IV ×3 (15:46→17:17)
--- NOTE | 2021-12-19 15:51 | SUR.PHASEI ---
FAMILY UPDATED VIA DATA MANAGEMENT SPECIALIST
[2021-12-19] MEDS: Cefazolin 1 GM/50 ML BAG IV (16:38)
[2021-12-19] MEDS: oxyCODONE 5 MG Tablet PO (18:29)
[2021-12-19] MEDS: Zolpidem Tartrate 5 MG Tablet PO (21:10)
[2021-12-19] MEDS: Propranolol 10 MG Tablet 20 MG PO (21:10)
[2021-12-20] VITALS (7 sets, daily range): BP systolic 145–180; BP diastolic 72–92; PULSE 74–94; RESP 16–18; TEMP 36.8–37.4; O2SAT 93–100
[2021-12-20] MEDS: Cefazolin 1 GM/50 ML BAG IV (00:11)
[2021-12-20] MEDS: Acetaminophen 500 MG Tablet 1000 MG PO ×4 (00:28→21:50)
[2021-12-20] MEDS: oxyCODONE 5 MG Tablet PO ×2 (00:29→06:28)
[2021-12-20] MEDS: Lactated Ringers 1,000 ML 15 ML IV (06:30)
[2021-12-20] MEDS: Propranolol 10 MG Tablet 20 MG PO ×2 (10:14→21:51)
--- NOTE | 2021-12-20 10:25 | CASEMGMT ---
RN MILTON SENIOR DB2 SYSTEMS PROGRAMMER CM to room to meet with patient for initial transition planning/care coordination assessment. TAMMIE ROSE introduced self and role at [facility]. Pt voices understanding and consents to assessment at this time. Pt resting in bed in no distress at this time. Pt is A/O at this time and answers all questions appropriately. Care providers, pharmacy, and demographics verified/updated at this time. PCP: Dr Salomón Jean Specialists: Dr Mike--ortho. Dr Carmichael- psychiatry [facility] Insurance: MMO Prescription Benefit: Yes Living Will/HPOA: States does not have LW or HCPOA . Interested in completing AD while @ [facility], stating would like his sig Nirmala monk to be his HPOA. TEJAL Ellsworth, made aware. LNOK: Mother is still living and pt has 3 older sisters. Pt has sig Nirmala monk. Living Arrangements: Lives alone in one-story home w/ a few steps to enter. Nirmala, sig other, plans to stay w/pt to assist while recovering. Transportation: Pt states drives self and states no transportation concerns at this time. Nirmala will take him home @ d/c. DME: Denies having any DME. Noted pt has used a walker while working w/therapy and inquired if pt would like a walker. Pt states therapy also started working w/him without use of a walker and does not know if he'll need one. Pt then stated he would go ahead and take a walker. Pt denies having a preference of DME co after reviewing w/him local DME companies. Pt agreeable to [employer]. HHC/SNF: No hx of either. Pt wishes to return home and states has no concerns with going home at time of discharge. CM to follow for any further discharge planning/needs. Pt voices no further concerns/needs at this time. Advised pt to ask for CM if any further questions/concerns/needs arise. Voices understanding. PLAN: Home w/walker and support of sig other. Irineo CORRAL RN, CM
--- NOTE | 2021-12-20 11:07 | CASEMGMT ---
Social Work SW met with pt to discuss advance directives. Pt stating that his significant other is not here and therefore he cannot complete documents. SW informed pt that SO does not need to be present, however pt preferred that she was. SW left AD information and SW rack card for pt and informed that if he would like to complete while hospitalized to ask nursing for SW. Pt expresses understanding. ASIA Champagne
--- NOTE | 2021-12-20 11:55 | PN.HOSP_ITS ---
Documented by User: Art RAMOS 12/20/21 12:09 Subjective Subjective Patient is a 51-year-old male comfortably resting in bed, alert and oriented x3. Denies chest pain, shortness of breath, palpitations, hemoptysis, sputum production, fever, chills, N/V/D. Objective Data Objective Data Vital Signs: Vital Signs Temp Pulse Resp BP Pulse Ox 98.7 F 75 16 158/72 H 100 12/20/21 08:10 12/20/21 08:10 12/20/21 08:10 12/20/21 08:10 12/20/21 08:10 Oxygen Flow Rate (L/min) 4 Oxygen Delivery Method Room Air Weight: 186 lb Body Mass Index (BMI) 27.4 Intake & Output: Intake and Output for Last 24 Hours 12/18/21 12/19/21 12/20/21 23:59 23:59 23:59 Intake Total 3102 / 3102 1050.00 / 1050.00 Output Total 3150 / 5200 4050 / 4050 Balance -48 / -2098 -3000.00 / -3000.00 Lab / Micro Data Result Diagrams: 12/16/21 09:33 Micro: Microbiology 12/16/21 09:34 Swab (Method) Nasal Screen MRSA/MSSA - Final Radiography Diagnostic Testing: Radiology Impression Spine X-Ray 12/19/21 10:27 IMPRESSION: Fluoroscopy during spinal fixation. Electronically Signed: Selwyn Lane MD at 12:34 EDT , Physical Exam Const alert, oriented x3 and no apparent distress HEENT head/scalp atraumatic and moist oral mucous membranes Head and Scalp: normocephalic Eyes PERRL and conjunctivae normal Neck no lymphadenopathy, supple and no JVD Resp normal respiratory effort, no retractions and no use of accessory muscles Cardio regular rate, regular rhythm and no JVD GI normal to inspection, nondistended, normoactive bowel sounds Extremity normal to inspection, full ROM and no clubbing, cyanosis or edema Skin no rashes or lesions noted, no wounds and skin turgor normal Neuro CN's II-XII intact bilaterally Psych affect normal Assessment & Plan Assessment/Plan (1) Essential tremor: PLAN: Patient is a 51-year-old male who presents to the hospital medicine service on consult from orthopedics who is managing this patient for disc disruption syndrome at L5-S1. 1) bipolar disorder Patient denies any manic or depressive symptoms, continue home lithium. 2) essential tremors Tremors appear to be well controlled at this time, continue propranolol. 3) elevated blood pressure Patient has had consistently elevated blood pressure since being admitted, self- reports to have white-coat hypertension. Not interested in initiating hypertensive regimen at this time, will follow up with primary care provider after discharge. 4) disc disruption syndrome at L5-S1 S/P posterior lumbar fixation at L5-S1. Management per orthopedics. DVT prophylaxis - SCDs Patient seen by Art Foote PA-C, under the supervision of Dr. Kilpatrick. Time spent on patient care: 9 minutes. Documented by User: Dr. Halian Kilpatrick MD 12/20/21 13:29 Objective Data Lab / Micro Data Result Diagrams: 12/16/21 09:33 Charges/Coding Addendum Addendum: Patient seen by Art Foote PA-C under my supervision Patient seen in the morning. He had no active complaints. His pain was well controlled. Today's postop day 1 of lumbar spine fusion. Review of systems otherwise negative. O/E: Const alert, oriented x3 and no apparent distress General Appearance: cooperative HEENT normocephalic, head/scalp atraumatic, hearing grossly normal bilaterally and moist oral mucous membranes Eyes PERRL, EOMs intact bilaterally and conjunctivae normal Neck no lymphadenopathy, supple and no JVD Resp normal respiratory effort and clear to auscultation bilaterally Cardio regular rate, regular rhythm, S1 normal heart sound, S2 normal heart sound and no murmurs GI normal to inspection, nondistended, normoactive bowel sounds and soft to palpation GI Narrative: abdominal dressing over surgical site on lower abdomen Extremity normal to inspection, full ROM and no clubbing, cyanosis or edema Skin no rashes or lesions noted; intact dressing over lower back at surgical site Neuro oriented x3, CN's II-XII intact bilaterally and moves all extremities Sensorium / Orientation: awake and alert Psych affect normal Assessment and plan #Lumbar spinal stenosis * s/p L5-S1 fusion * pain is well controlled; management as per primary team spine surgery * PT/OT on board. Fall precautions * #essential tremor: on propranolol #Bipolar disorder: on lithium 900mg bid DVT prophylaxis: as per primary team. Rest as per Art Foote PA-C's note which I have reivewed and endorsed TOtal time I spent on care of the patient today: 15 mins, with Art Foote spending 9 mins, making a total of 24 mins. Visit Charges Inpatient E&M: 51297 Subs Hosp L2
--- NOTE | 2021-12-20 15:23 | CASEMGMT ---
TAMMIE ROSE in to pt room to discuss walker. Pt asks TAMMIE ROSE to hold off as he may not need it after all. Will check back with patient. He states he has been using the IV pole and would like to see how he does tomorrow.
--- NOTE | 2021-12-20 16:27 | PCM.PN.ORT ---
Subjective Subjective Postop day #1. Mr. Zamora is doing quite well. He has been up 3-4 times walking around the halls here on the third floor. States that his back does not feel too bad he needs actually been passing gas. He also has some bowel sounds now. I think his ileus is going to be minimal. Nonetheless he is still to be on clear liquids until further notice as starting to early can throw him into a full-blown ileus. His his dressings are dry. Neurologically he is intact in both lower extremities. His progress is quite satisfactory. Objective Data Objective Data Vital Signs: Vital Signs Temp Pulse Resp BP Pulse Ox 99.3 F H 88 16 165/83 H 93 12/20/21 14:37 12/20/21 14:37 12/20/21 14:37 12/20/21 14:37 12/20/21 14:37 Oxygen Flow Rate (L/min) 4 Oxygen Delivery Method Room Air Weight: 186 lb Body Mass Index (BMI) 27.4 Intake & Output: Intake and Output for Last 24 Hours 12/18/21 12/19/21 12/20/21 23:59 23:59 23:59 Intake Total 3102 / 3102 1050.00 / 1050.00 Output Total 3150 / 5200 4050 / 4050 Balance -48 / -2098 -3000.00 / -3000.00 Lab / Micro Data Result Diagrams: 12/16/21 09:33 Micro: Microbiology 12/16/21 09:34 Swab (Method) Nasal Screen MRSA/MSSA - Final
[2021-12-20] MEDS: Ondansetron 4 MG/2 ML Vial IV (18:26)
[2021-12-20] MEDS: 0.9% Saline Lock 10 ML Syringe IV (18:27)
[2021-12-20] MEDS: Morphine 2 MG/ML Syringe IV (18:27)
[2021-12-20] MEDS: Zolpidem Tartrate 5 MG Tablet PO (21:50)
[2021-12-21 02:24] VITALS: BP 172/99; PULSE 85; RESP 18; TEMP 36.8; O2SAT 100
[2021-12-21] MEDS: oxyCODONE 5 MG Tablet PO ×4 (02:29→18:32)
[2021-12-21] MEDS: Acetaminophen 500 MG Tablet 1000 MG PO ×3 (06:32→21:45)
--- NOTE | 2021-12-21 06:44 | NURSING ---
drsg changed to back at this time d/t old drsg coming off. old drsg with minimal serosang drainage noted, new ABD pads applied and secured with tape. pt tolerated well and medicated with oxy/tylenol for pain at this time. denies further needs
[2021-12-21 07:23] VITALS: O2SAT 94
[2021-12-21] MEDS: Propranolol 10 MG Tablet 20 MG PO ×2 (08:59→21:45)
[2021-12-21 09:00] VITALS: BP 144/88; PULSE 87; RESP 18; TEMP 36.7; O2SAT 94
--- NOTE | 2021-12-21 10:55 | PN.HOSP_ITS ---
Documented by User: Moira Preciado NP, EQUIPMENT APPLICATION SPECIALIST-C 12/21/21 11:06 Subjective Subjective Patient seen and examined. Ambulating in hallway. Denies significant pain. Passing gas. Has not had bowel movement yet. Denies abdominal pain. Objective Data Objective Data Vital Signs: Vital Signs Temp Pulse Resp BP Pulse Ox 98.1 F 87 18 144/88 H 94 12/21/21 09:00 12/21/21 09:00 12/21/21 09:00 12/21/21 09:00 12/21/21 09:00 Oxygen Flow Rate (L/min) 4 Oxygen Delivery Method Room Air Weight: 186 lb Body Mass Index (BMI) 27.4 Intake & Output: Intake and Output for Last 24 Hours 12/19/21 12/20/21 12/21/21 23:59 23:59 23:59 Intake Total 3102 / 3102 1276.25 / 1276.25 Output Total 3150 / 5200 4050 / 4050 Balance -48 / -2098 -2773.75 / -2773.75 Lab / Micro Data Result Diagrams: 12/16/21 09:33 Micro: Microbiology 12/16/21 09:34 Swab (Method) Nasal Screen MRSA/MSSA - Final Physical Exam Const alert, oriented x3 and no apparent distress Orientation / Consciousness: awake, oriented to person, oriented to place and oriented to time HEENT normocephalic and moist oral mucous membranes Eyes PERRL, EOMs intact bilaterally and conjunctivae normal Neck no lymphadenopathy Resp normal respiratory effort and clear to auscultation bilaterally Cardio regular rate, regular rhythm and no murmurs Peripheral Pulses: pulses 2+ throughout GI normal to inspection, nondistended, normoactive bowel sounds, non-tender and non-distended Extremity normal to inspection Skin no rashes or lesions noted Skin Narrative: Post-op dressings intact Lesions: no lesions Rashes: no rashes Trauma: no lacerations or abrasions Neuro CN's II-XII intact bilaterally, no focal motor deficits, no sensory deficits noted and deep tendon reflexes 2+ bilaterally Psych mental status grossly normal and affect normal Assessment & Plan Assessment/Plan (1) DDD (degenerative disc disease), lumbosacral: (2) HNP (herniated nucleus pulposus), lumbar: PLAN: 1. Disc disruption syndrome L5-S1 status post posterior lumbar fusion L5-S1 with nonsegmental internal fixation [id number] day #2. M anagement per surgery. PT. PRN pain regimen. 2. Elevated blood pressure without history of hypertension-blood pressure persistently elevated. Initiated on amlodipine. Trend BP. 3. Essential tremors-on propanolol. 4. Bipolar disorder-on lithium. DVT prophylaxis- SCDs This patient was seen by Moira Preciado NP-C under the supervision of Dr. Kilpatrick. Time spent examining patient, reviewing data and subsequent management of care: 12 minutes Documented by User: Dr. Halina Kilpatrick MD 12/21/21 13:10 Objective Data Lab / Micro Data Result Diagrams: 12/16/21 09:33 Charges/Coding Addendum Addendum: Patient seen and examined by Moira Preciado under my supervision Patient seen in the morning. He had no active complaints. His pain was well controlled. Today's postop day 1 of lumbar spine fusion. Review of systems otherwise negative. O/E: Const alert, oriented x3 and no apparent distress General Appearance: cooperative HEENT normocephalic, head/scalp atraumatic, hearing grossly normal bilaterally and moist oral mucous membranes Eyes PERRL, EOMs intact bilaterally and conjunctivae normal Neck no lymphadenopathy, supple and no JVD Resp normal respiratory effort and clear to auscultation bilaterally Cardio regular rate, regular rhythm, S1 normal heart sound, S2 normal heart sound and no murmurs GI normal to inspection, nondistended, normoactive bowel sounds and soft to palpation GI Narrative: abdominal dressing over surgical site on lower abdomen Extremity normal to inspection, full ROM and no clubbing, cyanosis or edema Skin no rashes or lesions noted; intact dressing over lower back at surgical site Neuro oriented x3, CN's II-XII intact bilaterally and moves all extremities Sensorium / Orientation: awake and alert Psych affect normal Assessment and plan #Lumbar spinal stenosis * s/p L5-S1 fusion * pain is well controlled; management as per primary team spine surgery * PT/OT on board. Fall precautions * #Elevated blood pressure * Blood pressure has been markedly elevated. Patient not a known hypertensive. * started on amlodipine 10mg daily as BP has remained persistently elevated * monitor BP * #essential tremor: on propranolol #Bipolar disorder: on lithium 900mg bid DVT prophylaxis: as per primary team. Rest as per Art Foote PA-C's note which I have reviewed and endorsed Total time I spent on care of the patient today: 18 mins, with Moira Preciado spending 12 mins, making a total of 30 mins. Visit Charges Inpatient E&M: 78818 Subs Hosp L2
[2021-12-21] MEDS: 0.9% Saline Lock 10 ML Syringe IV ×3 (13:55→21:46)
[2021-12-21] MEDS: Ondansetron 4 MG/2 ML Vial IV ×2 (13:55→18:53)
--- NOTE | 2021-12-21 14:03 | PCM.PN.ORT ---
Subjective Subjective Postop day #2. Vishnu is doing about his good is he is was yesterday however he is not taking any morphine at all he is only taking so far today one 5 mg oxycodone which means that he is actually got his pain under fairly good control. He continues to have bowel sounds and continues to pass gas. Because of that we will go ahead and start full liquids for dinner. I anticipate he will be ready to go home tomorrow. He continues to ambulate well with his walker. Objective Data Objective Data Vital Signs: Vital Signs Temp Pulse Resp BP Pulse Ox 98.1 F 87 18 144/88 H 94 12/21/21 09:00 12/21/21 09:00 12/21/21 09:00 12/21/21 09:00 12/21/21 09:00 Oxygen Flow Rate (L/min) 4 Oxygen Delivery Method Room Air Weight: 186 lb Body Mass Index (BMI) 27.4 Intake & Output: Intake and Output for Last 24 Hours 12/19/21 12/20/21 12/21/21 23:59 23:59 23:59 Intake Total 3102 / 3102 1276.25 / 1276.25 600 / 600 Output Total 3150 / 5200 4050 / 4050 Balance -48 / -2098 -2773.75 / -2773.75 600 / 600 Lab / Micro Data Result Diagrams: 12/16/21 09:33 Micro: Microbiology 12/16/21 09:34 Swab (Method) Nasal Screen MRSA/MSSA - Final
[2021-12-21] MEDS: amLODIPine 10 MG Tablet PO (14:54)
[2021-12-21 14:55] VITALS: BP 144/81; PULSE 83; RESP 16; TEMP 37.2; O2SAT 100
[2021-12-21] MEDS: Ensure Surgery 237 ML LIQUID PO (17:25)
[2021-12-21 20:09] VITALS: BP 151/80; PULSE 92; RESP 16; TEMP 36.8; O2SAT 97
[2021-12-21] MEDS: Morphine 4 MG/ML Syringe IV (21:43)
[2021-12-21] MEDS: Zolpidem Tartrate 5 MG Tablet PO (21:47)
[2021-12-22 02:10] VITALS: BP 148/78; PULSE 85; RESP 18; TEMP 36.9; O2SAT 96
[2021-12-22] MEDS: oxyCODONE 5 MG Tablet PO ×2 (02:36→07:17)
[2021-12-22] MEDS: Morphine 2 MG/ML Syringe IV (04:09)
[2021-12-22] MEDS: 0.9% Saline Lock 10 ML Syringe IV ×2 (04:10→10:14)
[2021-12-22] MEDS: Acetaminophen 500 MG Tablet 1000 MG PO (05:55)
[2021-12-22 08:10] VITALS: BP 150/86; PULSE 74; RESP 15; TEMP 36.6; O2SAT 98
[2021-12-22] MEDS: Propranolol 10 MG Tablet 20 MG PO (10:14)
[2021-12-22] MEDS: Ondansetron 4 MG/2 ML Vial IV (10:14)
[2021-12-22] MEDS: amLODIPine 10 MG Tablet PO (10:14)
--- NOTE | 2021-12-22 10:57 | PN.HOSP_ITS ---
Documented by User: Moira Preciado NP, PLATFORM LOADER-C 12/22/21 11:03 Subjective Subjective Patient seen and examined. Plan for discharge per orthopedic medicine. Blood pressure improved however still above goal. Discussed home blood pressure monitoring and PCP follow-up. Patient denies symptoms or complaints. Objective Data Objective Data Vital Signs: Vital Signs Temp Pulse Resp BP Pulse Ox 97.9 F 74 15 150/86 H 98 12/22/21 08:10 12/22/21 08:10 12/22/21 08:10 12/22/21 08:10 12/22/21 08:10 Oxygen Flow Rate (L/min) 4 Oxygen Delivery Method Room Air Weight: 186 lb Body Mass Index (BMI) 27.4 Intake & Output: Intake and Output for Last 24 Hours 12/20/21 12/21/21 12/22/21 23:59 23:59 23:59 Intake Total 1276.25 / 1276.25 600 / 600 Output Total 4050 / 4050 Balance -2773.75 / -2773.75 600 / 600 Lab / Micro Data Result Diagrams: 12/16/21 09:33 Micro: Microbiology 12/16/21 09:34 Swab (Method) Nasal Screen MRSA/MSSA - Final Physical Exam Const alert, oriented x3 and no apparent distress Orientation / Consciousness: awake, oriented to person, oriented to place and oriented to time HEENT normocephalic and moist oral mucous membranes Eyes PERRL, EOMs intact bilaterally and conjunctivae normal Neck no lymphadenopathy Resp normal respiratory effort and clear to auscultation bilaterally Cardio regular rate, regular rhythm and no murmurs Peripheral Pulses: pulses 2+ throughout GI normal to inspection, nondistended, normoactive bowel sounds, non-tender and non-distended Extremity normal to inspection Skin no rashes or lesions noted Lesions: no lesions Rashes: no rashes Trauma: no lacerations or abrasions Neuro CN's II-XII intact bilaterally, no focal motor deficits, no sensory deficits not ed and deep tendon reflexes 2+ bilaterally Psych mental status grossly normal and affect normal Assessment & Plan Assessment/Plan (1) DDD (degenerative disc disease), lumbosacral: (2) HNP (herniated nucleus pulposus), lumbar: PLAN: 1. Disc disruption syndrome L5-S1 status post posterior lumbar fusion L5-S1 with nonsegmental internal fixation [id number] day #3. Management per surgery. 2. Elevated blood pressure without history of hypertension-blood pressure persistently elevated during admission. Initiated on amlodipine 10mg daily. Discussed with patient to check blood pressure daily at home and report findings to primary care provider. He does state his blood pressure is typically higher in a medical setting, complicated by postoperative pain. 3. Essential tremors-on propanolol. 4. Bipolar disorder-on lithium. DVT prophylaxis- SCDs This patient was seen by [facility] under the supervision of Dr. Kilpatrick. Time spent examining patient, reviewing data and subsequent management of care: 10 minutes Documented by User: Dr. Halina Kilpatrick MD 12/22/21 12:44 Objective Data Lab / Micro Data Result Diagrams: 12/16/21 09:33 Charges/Coding Addendum Addendum: Patient seen by Moira MCWILLIAMS under my supervision Patient seen and examined. He did complain of feeling a bit weak today but had no other complaints. Pain was well controlled and review of systems otherwise negative. O/E: O/E: Const alert, oriented x3 and no apparent distress General Appearance: cooperative HEENT normocephalic, head/scalp atraumatic, hearing grossly normal bilaterally and moist oral mucous membranes Eyes PERRL, EOMs intact bilaterally and conjunctivae normal Neck no lymphadenopathy, supple and no JVD Resp normal respiratory effort and clear to auscultation bilaterally Cardio regular rate, regular rhythm, S1 normal heart sound, S2 normal heart sound and no murmurs GI normal to inspection, nondistended, normoactive bowel sounds and soft to palpation GI Narrative: abdominal dressing over surgical site on lower abdomen Extremity normal to inspection, full ROM and no clubbing, cyanosis or edema Skin no rashes or lesions noted; intact dressing over lower back at surgical site Neuro oriented x3, CN's II-XII intact bilaterally and moves all extremities Sensorium / Orientation: awake and alert Psych affect normal Assessment and plan #Lumbar spinal stenosis * s/p L5-S1 fusion * pain is well controlled; management as per primary team spine surgery * PT/OT on board. Fall precautions * #Elevated blood pressure * started on PO amlodipine 10mg daily. * IV hydralazine prn * #Essential tremor: on propranolol #essential tremor: on propranolol #Bipolar disorder: on lithium 900mg bid DVT prophylaxis: as per primary team. Disposition: Patient stable for discharge from hospital standpoint Rest as per [facility]'s notes which I reviewed and endorsed. Total time spent on care of the patient today 20 minutes with Moira Preciado spending 10 minutes making a total of 30 minutes. Visit Charges Inpatient E&M: 20716 Subs Hosp L2
--- NOTE | 2021-12-22 11:39 | CASEMGMT ---
RN CM in to pt room, pt with at bedside. Pt denies need for walker homegoing but did take signed script in case he decides he needs it later.
[2021-12-22] MEDS: Ensure Surgery 237 ML LIQUID PO (12:01)
--- NOTE | 2021-12-22 12:16 | DS.PCM_ITS ---
Providers Date of Admission: 12/19/21 Primary Care Physician: Dr. Salomón Jean MD Consultations 12/19/21 14:25 Consult: Hospitalist Routine Consulting Provider: Rizwan Reyna Reason for Consult: Medical Management EMERGENT Consult: No MD Notified: Yes Date Notified: 12/19/21 Time Notified: 15:08 Method of Notification: Verbal Reason For Visit: 360 lumbar fusion Diagnosis Discharge Diagnosis (1) DDD (degenerative disc disease), lumbosacral: Status: Acute Code(s): M51.37 - Other intervertebral disc degeneration, lumbosacral region (2) HNP (herniated nucleus pulposus), lumbar: Status: Acute Code(s): M51.26 - Other intervertebral disc displacement, lumbar region Medications at Discharge Home Medications lithium carbonate 900 mg PO BID 04/08/20 propranolol 10 mg tablet 20 mg PO BID tab 02/28/21 acetaminophen [Tylenol] 650 mg PO Q6H PRN 08/22/21 cyanocobalamin (vitamin B-12) [Vitamin B-12] 5,000 mcg PO DAILY 08/22/21 multivitamin 1 tab PO DAILY 08/22/21 amlodipine 10 mg PO DAILY #30 tab 12/22/21 Hospital Course Summary of Care Provided Hospital Course: Mr. Zamora was noted days ago for surgical intervention. He underwent a 360 degree fusion at the L5-S1 level. Postoperatively he has done well. He had a little ileus for a short period of time and it has since res olved. He started full liquids yesterday. Change his dressing today the incision is dry and healing well. Have a small hematoma under it. I gave him and his girlfriend directions regarding of the dressings they are to come off on Saturday and on Saturday he can start taking showers. We will see me on either the fourth of the sixth of next month for follow-up. Will be given oxycodone for pain. Is the end of discharge summary on Vishnu Zamora. This is Dr. Mike dictating. Weight / BMI Weight Weight: 186 lb Body Mass Index (BMI) 27.4 ABG / Lab / Microbiology Data Result Diagrams: 12/16/21 09:33 Microbiology: Microbiology 12/16/21 09:34 Swab (Method) Nasal Screen MRSA/MSSA - Final Meaningful Use Info Meaningful Use Diagnoses (Choose all that apply): None applicable Discharge Plan Admission Admit Date/Time: 12/19/21 05:22 Primary Reason for Your Visit: surgery Attending Provider: Halina Kilpatrick Primary Care Provider: Salomón Jean Consulting Providers: Rizwan Reyna Discharge Orders/Prescriptions Prescriptions: New amlodipine 10 mg Tablet 10 mg PO DAILY Qty: 30 RF: 0 No Action propranolol 10 mg tablet 20 mg PO BID RF: 0 lithium carbonate 300 MG tablet 900 mg PO BID RF: 0 multivitamin Tablet 1 tab PO DAILY RF: 0 acetaminophen [Tylenol] 325 mg Tablet 650 mg PO Q6H PRN (Reason: Pain) RF: 0 cyanocobalamin (vitamin B-12) [Vitamin B-12] 2,000 mcg Tablet Extended Release 5,000 mcg PO DAILY RF: 0 Referrals / Follow Up: Salomón Jean MD [Primary Care Provider] - Disposition Disposition (needs filled in before D/C Order can be placed): Home, Self Care
== END 2021-12-22 12:47 | disposition home or self-care (01) | DRG 460 ==
LOC: ACINP 05:28 → MS3 09:04
PROVIDERS: Anesthesiology; Admitting Provider Orthopaedic Surgery; PCP Family Medicine; Referring Provider Orthopaedic Surgery; Visit Provider Student in an Organized Health Care Education/Training Program
PROC: 0SG30A0 Fusion of Lumbosacral Joint with Interbody Fusion Device, Anterior Approach, Anterior Column, Open Approach (ICD-10-PCS; principal; 2021-12-19 07:00)
DX: M51.37 Other intervertebral disc degeneration, lumbosacral region (principal); K56.7 Ileus, unspecified; F31.9 Bipolar disorder, unspecified; M51.36 Other intervertebral disc degeneration, lumbar region; M48.061 Spinal stenosis, lumbar region without neurogenic claudication; G25.0 Essential tremor; M51.26 Other intervertebral disc displacement, lumbar region; F41.9 Anxiety disorder, unspecified; M19.90 Unspecified osteoarthritis, unspecified site; Z87.891 Personal history of nicotine dependence; R03.0 Elevated blood-pressure reading, without diagnosis of hypertension; G89.29 Other chronic pain; Z79.899 Other long term (current) drug therapy
CPT/HCPCS: 36415; 72020; 82962; 83735; 85025; 87081; 88304; 97162; 97530; 99251; C1713; J7120; A4216; G0463; J2405; J3475

== ENCOUNTER → 2022-04-20 | Outpatient (CLI) | payer OTHER, SELFPAY ==
[2022-04-20 11:50] LABS: Anion Gap 3 (5-15); BUN 20 mg/dL (7-18); BUN/Creat Ratio 15.2 RATIO (10-20); Calcium,Total 9.9 mg/dL (8.5-10.1); Chloride 114 mmol/L (98-107); Creatinine, Serum 1.32 mg/dL (0.70-1.30); EST Glomerular Filtration Rate 61 mL/min (>60); Est Glom Filt Rate - Afr Amer 73 mL/min (>60); Glucose 90 mg/dL (74-106); Potassium 3.9 mmol/L (3.5-5.1); Sodium Level 145 mmol/L (136-145); Thyroid Stim Hormone (TSH) 0.95 uIU/mL (0.358-3.74)
== END | disposition home or self-care (01) ==
LOC: LAB 09:30
PROVIDERS: PCP Family Medicine; Referring Provider Psychiatry & Neurology Psychiatry; Visit Provider Psychiatry & Neurology Psychiatry
DX: Z51.81 Encounter for therapeutic drug level monitoring (principal); Z79.899 Other long term (current) drug therapy
CPT/HCPCS: 36415; 80048; 80178; 84443

== ENCOUNTER 2023-04-10 10:30 | Outpatient (RCR) | payer BC, SELFPAY ==
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
--- NOTE | 2023-03-20 10:59 | HP.PTREVAL_ITS ---
Re-Evaluation Intro: Dr. Luca Mike, DO, It has been my pleasure to treat ANIYA DU over the last 9 visits for s/p lumbar spinal fusion. Please see the progress note below for an update on the physical therapy plan of care! Subjective Subjective: so so if I am being honest. Seeing Rashid today as he thinks something is being missed. Had bad pain low back and up into neck 9/ , rainy days are worse. Good days are 3/10 in LB. Exercises are going OK, trunk rotation sometimes bothersome, rotation strengthening can hurt at times. Getting HEP in the best I can between redoing house and work. Does them daily. Working without unusual pain. Painting house can make him worse especially looking up at ceiling to pain. Psychiatirst has told him lithium can have tremor side effects which he does get in hands. sees neurologist for hand tremors. Worried about Rickey body disease which may run in family. Objective Objective/Function: Cervical aROM is actually very god but head does sit forward maximally at rest, lower spine posture much improved. Lumbar AROM ext mod limited, SB min limited, flexcion min limited. tightness central LB with all of these movement. General 3/10 pain across LB at most times. No neck pain today but did have bad day of 05/12 for no reason that he wants to address with doctor. Arms and Legs have no symptoms outside of tremors and some intermittent numbness hands infrequently. goals and POC for f/u in 2-3 weeks still appropriate. Pt to call if doctor visit today changes anything. Plan Plan Plan: Pt to cotninue via HEP and f/u in 3 weeks for progression of exercises core and legs and posture or d/c. pt scheduled with doctor today as he is more worried about the neck pain but f eels 40% better in his LB which is good considering his history. Balance/Gait/Functional tests Balance/Special Test Scores Oswestry Low Back Score: 5 Goals Goals Goal 1:: Pt feel 75% better to pain 1/10 at worst and manageable Goal Time Frame: 4-6 Weeks Goal Progress: 40% Goal 2:: Patient sit with upright posture and focus on movement when sitting or standing for long periods of time. Goal Time Frame: 4-6 Weeks Goal Progress: improved. Goal 3:: I appropriate HEP for LB ROM, core and postural strength, HS and quad stretches via HEP Goal Time Frame: 4-6 Weeks Goal Progress: initial met Goal 4:: oswestry score 4 or less Goal Time Frame: 4-6 Weeks Goal Progress: Progressing Anticipated Interventions Anticipated Interventions Patient/Client Instruction: Educate patient on: Condition and Plan of Care For the Purpose of:: To decrease pain, To increase ROM, To improve nutrient deli very to tissue, To increase tolerance to activity/condition/position and To improve gait and locomotor functions Therapeutic Exercise to Include: Strength training, Postural training, Flexibilty training, Passive ROM, Active ROM and Dynamic Lumbar Stabilization For the Purpose of:: To decrease pain, To increase ROM, To improve nutrient delivery to tissue and To increase tolerance to activity/condition/position Re-Evaluation Ending Re-evaluation ending: Please do not hesitate to contact me at [phone] by phone or if you have questions or concerns regarding this new plan of care! Sincerely, Gaurav Wiggins, DPT, OCS, CSCS
--- NOTE | 2023-04-10 10:57 | HP.PTDCSUM ---
Discharge Summary D/C summary: It has been my pleasure to treat ANIYA DU referred by Dr. Luca Mike DO, with the diagnosis of s/p lumbar spinal fusion for a total of 10 visit(s). Discharge Date: 04/10/23 Please see the following information for a summary of their discharge status. Subjective Subjective: Neck has been fine. LBP not too bad, slight discomfort many days. 2/10. Legs are Ok. HEP: fell off the horse, not doing them very often, every now and then. Activities are pretty normal at home and at work. sleep is OK. Pain LBP: Pain Intensity (Out of 10): 2 Overall Improvement % Improvement: 90 Objective Objective/Function: L/S AROM is good with just some slight pain, flexion and SB are not painful. Walking normal, steps normal and no increased pain. Subjectively doing well. with activity and sleep. Goals Goal 1:: Pt feel 75% better to pain 1/10 at worst and manageable Goal Progress: 90% Goal 2:: Patient sit with upright posture and focus on movement when sitting or standing for long periods of time. Goal Progress: Goal Met Goal 3:: I appropriate HEP for LB ROM, core and postural strength, HS and quad stretches via HEP Goal Progress: Goal Met Goal 4:: oswestry score 4 or less Goal Progress: Progressing Plan Plan: d/c to HEP D/C Information Discharge Comments: Will continue via HEP daily stretches and 3-4x/week strength. d/c sentence: If there are questions or concerns regarding this patient's physical therapy, please feel free to call me at [phone]. Thank you for the referral of this patient. Sincerely, Gaurav Wiggins, DPT, OCS, CSCS Balance/Gait/Functional tests Balance/Special Test Scores Oswestry Low Back Score: 5
== END 2023-04-10 19:00 | disposition home or self-care (01) ==
LOC: PT 10:30
PROVIDERS: Visit Provider Orthopaedic Surgery
DX: Z98.1 Arthrodesis status (principal)
CPT/HCPCS: 97110; 97161; 97164

== ENCOUNTER → 2023-06-18 | Outpatient (CLI) | payer BC, SELFPAY ==
[2023-06-18 09:51] LABS: Absolute Neutrophil Count 5.2 X10^3/uL (2.0-7.7); Basophil# 0.05 X10^3/uL; Basophil% 0.7 % (0-1); Eosinophil# 0.29 X10^3/uL; Eosinophils% 4.1 % (0-5); Hematocrit 43.7 % (40-54); Hemoglobin 13.8 g/dL (13.0-16.5); Lymphocyte % 14.1 % (19-41); Mean Corp Hgb Conc 31.6 g/dL (32-36); Mean Corpuscular Hgb 30.3 pg (27.0-32.0); Mean Platelet Vol. 10.8 fl (6.2-12.0); Monocyte# 0.47 X10^3/uL; Monocyte% 6.6 % (0-10); NRBC Flagged by Analyzer 0 % (0-5); Neutrophil # 5.24 X10^3/uL (2.7-7.7); Neutrophil % 74.2 % (47-70); Platelet Count 209 K/mm3 (150-450); RBC Distribution Width CV 12.4 % (11.6-14.6); RBC Distribution Width SD 43.7 fl (35.1-43.9); Red Blood Count 4.55 M/mm3 (4.6-6.2); White Blood Count 7.1 K/mm3 (4.4-11.0)
[2023-06-18 11:59] LABS: ALB/GLOB Ratio 1.1 RATIO (0.9-2.4); AST(SGOT) 13 U/L (15-37); Alanine Aminotransfer ALT/SGPT 23 U/L (16-61); Albumin, Serum 3.7 g/dL (3.2-5.0); Alkaline Phosphatase 90 U/L (45-117); Anion Gap 3 (5-15); BUN 31 mg/dL (7-18); BUN/Creat Ratio 22.5 RATIO (10-20); Calcium,Total 9.5 mg/dL (8.5-10.1); Chloride 117 mmol/L (98-107); Creatinine, Serum 1.38 mg/dL (0.70-1.30); EST Glomerular Filtration Rate 57 mL/min (>60); Est Glom Filt Rate - Afr Amer 69 mL/min (>60); Globulin 3.5 g/dL (2.2-4.2); Glucose 131 mg/dL (74-106); Protein, Total 7.2 g/dL (6.4-8.2); Sodium Level 146 mmol/L (136-145); Thyroid Stim Hormone (TSH) 0.65 uIU/mL (0.358-3.74)
== END | disposition home or self-care (01) ==
PROVIDERS: PCP Internal Medicine; Referring Provider Student in an Organized Health Care Education/Training Program; Visit Provider Student in an Organized Health Care Education/Training Program
DX: F31.81 Bipolar II disorder (principal)
CPT/HCPCS: 36415; 80053; 80178; 84443; 85025

== ENCOUNTER → 2023-07-29 | Outpatient (CLI) | payer BC, SELFPAY ==
[2023-07-29 13:06] LABS: Anion Gap 5 (5-15); BUN 17 mg/dL (7-18); BUN/Creat Ratio 12.4 RATIO (10-20); Calcium,Total 9.5 mg/dL (8.5-10.1); Chloride 111 mmol/L (98-107); Cholesterol 223 mg/dL (200); Creatinine, Serum 1.37 mg/dL (0.70-1.30); EST Glomerular Filtration Rate 58 mL/min (>60); Est Glom Filt Rate - Afr Amer 70 mL/min (>60); Glucose 89 mg/dL (74-106); High Density Lipoprotein 45 mg/dL; PSA,Total - Annual Screen 0.64 ng/mL (0.00-4.00); Sodium Level 146 mmol/L (136-145); Triglycerides 329 mg/dL; Very Low Density Lipoprotein 66 mg/dL (5-40)
== END | disposition home or self-care (01) ==
LOC: BIMLAB 10:32
PROVIDERS: PCP Internal Medicine; Referring Provider Internal Medicine; Visit Provider Internal Medicine
DX: I10 Essential (primary) hypertension (principal); R35.1 Nocturia; Z13.6 Encounter for screening for cardiovascular disorders
CPT/HCPCS: 36415; 80048; 80061; 84153; G0103

== ENCOUNTER → 2023-09-03 | Outpatient (CLI) | payer BC, SELFPAY ==
--- OUTSIDE RECORDS SUMMARY | 2023-09-03 12:41 | XMS RPT_ITS | CCD ---
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 Chronic Residual codes; unclassified (1 source) Other specified postprocedural states; Translations: [Other specified postprocedural states] Onset: 10-10-2018 Results Test Name Value Interpretation Reference Range Facil ity Encounters Encounter Date Encounter Type Care Provider Facility Start: 10-10-2018 End: 10-10-2018 Patient encounter procedure MARYAN CONNORS [facility] Summary Purpose Family History No Family History Records FoundNo Family History Records Found Advance Directives No Advanced Directives Records FoundNo Advanced Directives Records Found Additional Source Comments (unrecognized sect ion and content) No Status Records FoundNo Status Records Found INFORMATION SOURCE (unrecogn ized section and content) DATE CREATED AUTHOR AUTHOR'S ORGANIZ ATION 03/03/2021 [facility] FOR RECORDS PERTAINING TO PATIENTS WHO ARE OR HAVE BEEN ENROLLED IN A CHEMICAL DEPENDENCY/SUBSTANCEABUSE PROGRAM, SOME INFORMATION MAY BE OMITTED. This clinical summary was aggregated from multiple sources. Caution should be exercised in using it in the provision of clinical care. This summary normalizes information from multiple sources, and as a consequence, information in this document may materially change the coding, format and clinical context of patient data. In addition, data may be omitted in some cases. CLINICAL DECISIONS SHOULD BE BASED ON THE PRIMARY CLINICAL RECORDS. [employer] provides no warranty or guarantee of the accuracy or completeness of information in this document.
[2023-09-03 15:14] LABS: Hematocrit 48.1 % (40-54); Hemoglobin 15.7 g/dL (13.0-16.5); Mean Corp Hgb Conc 32.6 g/dL (32-36); Mean Corpuscular Hgb 30.5 pg (27.0-32.0); Mean Corpuscular Volume 93.4 fL (80-94); Mean Platelet Vol. 10.5 fl (6.2-12.0); Platelet Count 234 K/mm3 (150-450); RBC Distribution Width CV 12.2 % (11.6-14.6); RBC Distribution Width SD 42.1 fl (35.1-43.9); Red Blood Count 5.15 M/mm3 (4.6-6.2); White Blood Count 9.1 K/mm3 (4.4-11.0)
[2023-09-03 15:44] LABS: ALB/GLOB Ratio 1.1 RATIO (0.9-2.4); AST(SGOT) 14 U/L (15-37); Alanine Aminotransfer ALT/SGPT 25 U/L (16-61); Alkaline Phosphatase 106 U/L (45-117); Anion Gap 2 (5-15); BUN 23 mg/dL (7-18); BUN/Creat Ratio 15.3 RATIO (10-20); Calcium,Total 10.4 mg/dL (8.5-10.1); Chloride 113 mmol/L (98-107); EST Glomerular Filtration Rate 52 mL/min (>60); Est Glom Filt Rate - Afr Amer 63 mL/min (>60); Globulin 3.8 g/dL (2.2-4.2); Glucose 101 mg/dL (74-106); Protein, Total 7.8 g/dL (6.4-8.2); Sodium Level 144 mmol/L (136-145)
[2023-09-03 15:47] LABS: Vitamin B12 805 pg/mL (211-911)
== END | disposition home or self-care (01) ==
PROVIDERS: PCP Internal Medicine; Referring Provider Psychiatry & Neurology Neurology; Visit Provider Psychiatry & Neurology Neurology
DX: G31.84 Mild cognitive impairment of uncertain or unknown etiology (principal); E72.20 Disorder of urea cycle metabolism, unspecified
CPT/HCPCS: 36415; 80053; 82140; 82607; 82746; 84425; 85027

== ENCOUNTER → 2023-09-20 | Outpatient (CLI) | payer BC, SELFPAY ==
--- NOTE | 2023-09-20 12:49 | MRI_ITS ---
EXAM: MR HEAD WITHOUT INTRAVENOUS CONTRAST CLINICAL INDICATION: mild cognitive impairment; parkinsonism; trigeminal neuralgia, TECHNIQUE: Multiplanar and multisequence MR images of the brain were obtained without intravenous contrast. COMPARISON: No relevant prior studies available. FINDINGS: BRAIN AND EXTRA-AXIAL SPACES: Small areas of increased T2 signal intensity within the cerebral white matter suggestive of chronic microvascular change. No intra- or extra-axial hemorrhage. No evidence of acute infarct. No intracranial mass or mass effect. There is preservation of the cruz/white matter interface. Posterior fossa structures are unremarkable. Ventricles are appropriate for age. No hydrocephalus. Basal cisterns are patent. SELLA: Normal. Normal sella turcica, pituitary gland, infundibular stalk, optic chiasm and hypothalamus. AUDITORY SYSTEM: Normal. The internal auditory canals are patent. BONES/JOINTS: Intact calvarium. SINUSES: Unremarkable as visualized. Clear. MASTOID AIR CELLS: Unremarkable as visualized. Clear. ORBITS: Unremarkable as visualized. Both globes, extraocular muscles, optic nerves and retrobulbar fat appear unremarkable. VASCULATURE: Unremarkable as visualized. Normal flow voids in the major intracranial circulation. MRI/Brain without Contrast IMPRESSION: No acute intracranial abnormality. Mild white matter changes which may represent chronic microvascular disease. Electronically Signed: Paulino Lay MD at 16:48 EST ,
--- OUTSIDE RECORDS SUMMARY | 2023-09-20 13:07 | XMS RPT_ITS | CCD ---
Author Name Unknown Address [address] [place] [address] Organization [facility] Care Team Providers Care Shoes Salesperson Name Role Phone MARYAN CONNORS Admitting Unavailable [...] DATE CREATED AUTHOR AUTHOR'S ORGANIZ ATION 03/03/2021 [facility] FOR RECORDS PERTAINING TO PATIENTS WHO [...] BE BASED ON THE PRIMARY CLINICAL RECORDS. [employer] provides no warranty or guarantee of the accuracy or completeness of information in this document.
== END | disposition home or self-care (01) ==
PROVIDERS: PCP Internal Medicine; Visit Provider Psychiatry & Neurology Neurology
DX: G31.84 Mild cognitive impairment of uncertain or unknown etiology (principal); G20.C Parkinsonism, unspecified; G50.0 Trigeminal neuralgia
CPT/HCPCS: 70551

== ENCOUNTER → 2023-12-24 | Outpatient (CLI) | payer BC, SELFPAY ==
[2023-12-24 11:42] LABS: Thyroid Stim Hormone (TSH) 1.02 uIU/mL (0.358-3.74)
== END | disposition home or self-care (01) ==
LOC: LAB 10:29
PROVIDERS: PCP Internal Medicine; Referring Provider Student in an Organized Health Care Education/Training Program; Visit Provider Student in an Organized Health Care Education/Training Program
DX: F31.81 Bipolar II disorder (principal); Z79.899 Other long term (current) drug therapy
CPT/HCPCS: 36415; 80178; 84443

== ENCOUNTER 2024-03-25 10:12 | Outpatient (RCR) | payer BC, SELFPAY ==
[2024-03-25 11:29] LABS: Cholesterol 208 mg/dL (200); High Density Lipoprotein 49 mg/dL; Triglycerides 228 mg/dL; Very Low Density Lipoprotein 46 mg/dL (5-40)
== END 2024-04-01 18:00 | disposition home or self-care (01) ==
LOC: LAB 10:12
PROVIDERS: PCP Internal Medicine; Referring Provider Student in an Organized Health Care Education/Training Program; Visit Provider Internal Medicine
DX: Z79.899 Other long term (current) drug therapy (principal)
CPT/HCPCS: 36415; 80061; 80178

== ENCOUNTER → 2024-09-26 | Outpatient (CLI) | payer BC, SELFPAY ==
[2024-09-26 10:36] LABS: Absolute Lymphocyte Count 1.24 X10^3/uL (0.83-4.51); Absolute Neutrophil Count 4.8 X10^3/uL (2.0-7.7); Basophil# 0.06 X10^3/uL; Basophil% 0.9 % (0-1); Eosinophil# 0.23 X10^3/uL; Eosinophils% 3.3 % (0-5); Hematocrit 40.8 % (40-54); Hemoglobin 13.5 g/dL (13.0-16.5); Lymphocyte # 1.24 X10^3/ul (0.83-4.51); Lymphocyte % 17.9 % (19-41); Mean Corp Hgb Conc 33.1 g/dL (32-36); Mean Corpuscular Hgb 30.1 pg (27.0-32.0); Mean Corpuscular Volume 91.1 fL (80-94); Mean Platelet Vol. 10.4 fl (6.2-12.0); Monocyte# 0.58 X10^3/uL; Monocyte% 8.4 % (0-10); NRBC Flagged by Analyzer 0 % (0-5); Neutrophil # 4.79 X10^3/uL (2.7-7.7); Neutrophil % 68.9 % (47-70); Platelet Count 192 K/mm3 (150-450); RBC Distribution Width CV 12.4 % (11.6-14.6); RBC Distribution Width SD 41.1 fl (35.1-43.9); Red Blood Count 4.48 M/mm3 (4.6-6.2); White Blood Count 6.9 K/mm3 (4.4-11.0)
[2024-09-26 11:26] LABS: ALB/GLOB Ratio 1.1 RATIO (0.9-2.4); AST(SGOT) 11 U/L (15-37); Alanine Aminotransfer ALT/SGPT 19 U/L (16-61); Albumin, Serum 3.7 g/dL (3.2-5.0); Alkaline Phosphatase 87 U/L (45-117); Anion Gap 6 (5-15); BUN 28 mg/dL (7-18); BUN/Creat Ratio 18.9 RATIO (10-20); Calcium,Total 9.4 mg/dL (8.5-10.1); Chloride 115 mmol/L (98-107); Creatinine, Serum 1.48 mg/dL (0.70-1.30); EST Glomerular Filtration Rate 53 mL/min (>60); Est Glom Filt Rate - Afr Amer 64 mL/min (>60); Globulin 3.5 g/dL (2.2-4.2); Glucose 99 mg/dL (74-106); Potassium 3.6 mmol/L (3.5-5.1); Protein, Total 7.2 g/dL (6.4-8.2); Sodium Level 143 mmol/L (136-145); Thyroid Stim Hormone (TSH) 0.756 uIU/mL (0.358-3.740)
== END | disposition home or self-care (01) ==
LOC: LAB 10:10
PROVIDERS: PCP Internal Medicine; Referring Provider Student in an Organized Health Care Education/Training Program; Visit Provider Student in an Organized Health Care Education/Training Program
DX: F31.81 Bipolar II disorder (principal); Z79.899 Other long term (current) drug therapy
CPT/HCPCS: 36415; 80053; 80178; 84439; 84443; 85025

== ENCOUNTER → 2024-12-18 | Outpatient (CLI) | payer BC, SELFPAY ==
[2024-12-18 18:36] LABS: Anion Gap 12 (5-15); BUN 24 mg/dL (4-19); BUN/Creat Ratio 16.4 RATIO (10-20); Calcium,Total 9.9 mg/dL (7.6-11.0); Carbon Dioxide 23.7 mmol/L (21.0-32.0); Chloride 108 mmol/L (98-108); Creatinine, Serum 1.49 mg/dL (0.70-1.20); EST Glomerular Filtration Rate 55 (>60); Glucose 98 mg/dL (70-99); Potassium 3.8 mmol/L (3.3-5.1); Sodium Level 144 mmol/L (133-145); Thyroid Stim Hormone (TSH) 0.821 uIU/mL (0.300-4.200)
[2024-12-18 18:37] LABS: Lithium 0.74 mmol/L (0.60-1.20)
== END | disposition home or self-care (01) ==
LOC: BFHLAB 16:48
PROVIDERS: PCP Nurse Practitioner Family; Visit Provider Nurse Practitioner Family
DX: Z12.5 Encounter for screening for malignant neoplasm of prostate (principal); R68.89 Other general symptoms and signs; Z79.899 Other long term (current) drug therapy
CPT/HCPCS: 36415; 80048; 80178; 84153; 84439; 84443; G0103

== ENCOUNTER → 2024-12-18 | Outpatient (CLI) | payer BC, SELFPAY | END | disposition home or self-care (01) | PROVIDERS: PCP Nurse Practitioner Family; Referring Provider Nurse Practitioner Family; Visit Provider Nurse Practitioner Family | DX: R31.9 Hematuria, unspecified (principal) | CPT/HCPCS: 87086 ==

== ENCOUNTER → 2025-06-21 | Outpatient (CLI) | payer BC, SELFPAY ==
[2025-06-21 11:39] LABS: Anion Gap 8 (5-15); BUN 25 mg/dL (4-19); BUN/Creat Ratio 16.4 RATIO (10-20); Calcium,Total 10.1 mg/dL (7.6-11.0); Carbon Dioxide 27.8 mmol/L (21.0-32.0); Chloride 108 mmol/L (98-108); Glucose 97 mg/dL (70-99); Potassium 4.4 mmol/L (3.3-5.1)
[2025-06-21 11:41] LABS: Lithium 0.82 mmol/L (0.60-1.20)
== END | disposition home or self-care (01) ==
PROVIDERS: PCP Nurse Practitioner Family; Referring Provider Student in an Organized Health Care Education/Training Program; Visit Provider Student in an Organized Health Care Education/Training Program
DX: Z79.899 Other long term (current) drug therapy (principal)
CPT/HCPCS: 36415; 80048; 80178